=== PATIENT | female | born 1995 | race African-American/Black ===

== ENCOUNTER 2020-10-16 11:37 | Emergency (ER) | payer BC, MEDICAID ==
[~2020-10-16] VITALS: Ht 165.1 cm; Wt 140.6 kg
[2020-10-16 11:48] VITALS: BP 145/89
--- NOTE | 2020-10-16 11:48 | NUR ---
ED Nurse Note: Pt walked in to ED c/o loss of sense of smell, weakness and headache x2 days. Pt aslo c/o mild SOB. O2 at 96%, on room air. AAOx4, verbally responsive. Afebrile.
--- NOTE | 2020-10-16 12:10 | NUR ---
ED Nurse Note: Pt refused Xray, ERMD aware.
--- NOTE | 2020-10-16 12:35 | Emergency Room Report ---
History of Present Illness General Chief Complaint: Headache Source: Patient Present Illness HPI Patient is a 25-year-old female presents for increased headache and generalized body aches. She has associated nausea. Sick contacts at home with similar symptoms. Nonproductive cough. Denies any prior medical history. Has some asthma. Patient onset of symptoms over the past few days. Denies feeling dizzy or lightheaded. Denies any vomiting or diarrhea. 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 COVID-19 Screening: Negative COVID-19 COVID-19 Testing Source: clinic Patient History Past Medical History: see triage record Last Menstrual Period: 09/18/20 Now: No Reviewed Nursing Documentation: PMH: Agreed; PSxH: Agreed Nursing Documentation-PMH Past Medical History: No Stated History Review of Systems All Other Systems: negative except mentioned in HPI Physical Exam Vital Signs Date Time Temp Pulse Resp B/P (MAP) Pulse Ox O2 Delivery O2 Flow Rate FiO2 10/16/20 11:40 98.1 86 19 145/89 (107) 96 Room Air General Appearance: normal inspection, well appearing, alert, GCS 15, obese Head: normocephalic, atraumatic ENT: hearing grossly normal, normal voice Neck: full range of motion, supple Respiratory: normal inspection, lungs clear, no respiratory distress, speaking full sentences Cardiovascular #1: normal inspection, no edema Gastrointestinal: normal inspection Musculoskeletal: no calf tenderness Neurologic: alert, motor strength/tone normal, sagger filler III-XII nml as tested, oriented x3, normal gait Psychiatric: normal inspection, judgement/insight normal, memory normal, moo d/affect normal Skin: normal inspection, no rash Medical Decision Making Diagnostic Impression: Primary Impression: Viral respiratory infection ER Course Patient is a 25-year-old female who presents for increased cough and generalized body aches. Differential diagnosis include was not limited to coronavirus infection, pneumonia, asthma among others. Patient has an overall benign exam and does not appear to require any laboratory testing at this time. Patient was seen in the middle of the pandemic and has symptoms consistent with coronavirus infection. Patient declined chest x-ray. She states she is not . Patient was offered treatment with antibody which she declined. As she does have some risk factors which include BMI greater than 30. Patient was advised to self quarantine. She was advised to return if she began having worsening difficulty breathing or other concerns. This medical record is generated with [employer] manager inspection software. There may be some manager inspection discrepancies related to use of this software Last Vital Signs Date Time Temp Pulse Resp B/P (MAP) Pulse Ox O2 Delivery O2 Flow Rate FiO2 10/16/20 11:48 98.1 86 19 145/89 96 Room Air Status: improved Disposition: HOME, SELF-CARE Condition: Stable Scripts Acetaminophen* (ACETAMINOPHEN EXTRA STRENGTH*) 500 Mg Tablet 500 MG ORAL Q8H PRN for Fever/Headache/Mild Pain, #30 TAB Prov: Thony Thacker MD 10/16/20 Thony Thacker MD Oct 16, 2020 12:35
[2020-10-16] MEDS ORDERED: ACETAMINOPHEN500 M3 ORAL (12:40)
[2020-10-16 12:45] VITALS: BP 145/89
--- NOTE | 2020-10-16 12:45 | NUR ---
ED Nurse Note: Pt cleared by ERMD for discharge. DC instructions/prescription was given and explained to pt and verbalized understanding of teachings. All medical deviecs such as ID band removed. Pt is AAO x4, ambulatory and left with all personal belongings.
== END 2020-10-16 12:45 | disposition home or self-care (01) ==
LOC: EMR 12:42
DX: U07.1 COVID-19 (principal); R51.9 Headache, unspecified; R11.0 Nausea; R05 Cough
CPT/HCPCS: 99282; U0004